=== PATIENT | female | born 1970 | race African-American/Black ===

== ENCOUNTER 2019-01-12 17:00 | Emergency (ER) | payer SELFPAY ==
[~2019-01-12] VITALS: Ht 165.1 cm; Wt 100.0 kg
[2019-01-12 17:02] VITALS: BP 170/83
[2019-01-12] MEDS ORDERED: FLUORESCEIN SODIUM 1MG/STRIP OP ONE (17:45)
[2019-01-12] MEDS ORDERED: TETRACAINE 0.5% OPHTH DROPS 4ML OP ONE (17:45)
== END 2019-01-12 19:07 | disposition home or self-care (01) ==
LOC: ER 17:00
DX: H53.8 Other visual disturbances (principal); I10 Essential (primary) hypertension
CPT/HCPCS: 99283

== ENCOUNTER 2024-10-16 09:16 | Emergency (ER) | payer SELFPAY ==
[~2024-10-16] VITALS: Ht 167.6 cm; Wt 91.0 kg
[2024-10-16 09:18] VITALS: BP 140/110; PULSE 70; RESP 18; TEMP 37; O2SAT 98
[2024-10-16] MEDS ORDERED: KETOROLAC 15MG/ML VIAL IM ONE (10:15)
[2024-10-16 10:30] LABS: CLARITY URINE CLEAR (CLEAR); COLOR URINE YELLOW (YELLOW); GLUCOSE URINE NEGATIVE (NEGATIVE); KETONES URINE NEGATIVE (NEGATIVE); LEUKOCYTE ESTERASE URINE NEGATIVE (NEGATIVE); NITRITE URINE NEGATIVE (NEGATIVE); OCCULT BLOOD URINE NEGATIVE (NEGATIVE); PH URINE 6.5 (4.5-8.0); PROTEIN URINE NEGATIVE (NEGATIVE); SPECIFIC GRAVITY URINE 1.013 (1.005-1.030); UROBILINOGEN URINE 0.2 E.U./dL (0.2-1.0)
== END 2024-10-16 10:15 | disposition left against medical advice (07) ==
LOC: ER 09:16
DX: M54.9 Dorsalgia, unspecified (principal); Z53.21 Procedure and treatment not carried out due to patient leaving prior to being seen by health care provider
CPT/HCPCS: 81003